=== PATIENT | female | born 2000 | race Caucasian/White ===

== ENCOUNTER 2021-05-05 21:09 | Emergency (ER) | payer BC ==
[~2021-05-05] VITALS: Ht 157.5 cm; Wt 50.8 kg
[~2021-05-05 21:09] MED LIST: IBUPROFEN600 MG PO; MAPAP325 MG PO; OXYCODON-ACETA1 EAC2 PO; ZOFRAN4 MG PO
[2021-05-05] MEDS ORDERED: NITROSTAT0.4 MG SL (21:30)
[2021-05-05] MEDS ORDERED: EPIPEN 2-P0.3 MG/0.3 IM (23:45)
== END 2021-05-05 23:56 | disposition home or self-care (01) ==
LOC: ED 21:09
DX: R06.02 Shortness of breath (principal)
CPT/HCPCS: 96374; 96375; 99284-25; J0171; J1200; J2930

== ENCOUNTER 2021-05-08 14:48 | Emergency (ER) | payer BC ==
[~2021-05-08] VITALS: Ht 157.5 cm; Wt 50.8 kg
[~2021-05-08 14:48] MED LIST changes: +EPIPEN 2-P0.3 MG/0.3 IM; +NITROSTAT0.4 MG SL
--- OUTSIDE RECORDS SUMMARY | 2021-05-08 14:56 | XMS ---
PreManage Notification: DEMOND VAUGHN Security Veterinary Practitioner Events No recent Security Events currently on file CRITERIA MET - [facility] - 2 Visits in 30 Days CARE PROVIDERS There are no care providers on record at this time. Javi has no Care Guidelines for this patient. [place] VIS[facility] COUNT (12 MO.) [facility] NOTE: Visits indicate total known visits. [facility] (12 MO.) [facility] COMPLAINT: - ALLERGIC REACTION 05/05/2021 21:10 [facility]EE[facility] [place] TYPE: Emergency COMPLAINT: - DIFFICULTY BREATHING INPATIENT VISIT TRACKING (12 MO.) No inpatient visits to display in this time frame [email or web address]
[2021-05-08] MEDS ORDERED: ATIVAN1 MG PO (16:41)
== END 2021-05-08 16:56 | disposition home or self-care (01) ==
LOC: ED 14:48
DX: J38.5 Laryngeal spasm (principal); Z88.8 Allergy status to other drugs, medicaments and biological substances; Z79.899 Other long term (current) drug therapy; Z20.822 Contact with and (suspected) exposure to COVID-19
CPT/HCPCS: 71045; 96374; 99285-25; C9803; J2060; U0003

== ENCOUNTER 2022-09-05 21:18 | Emergency (ER) | payer OTHER ==
[~2022-09-05] VITALS: Ht 157.5 cm; Wt 55.0 kg
[~2022-09-05 21:18] MED LIST changes: +ATIVAN1 MG PO; +ONDANSETRON ODT4 MG PO
[2022-09-06] MEDS ORDERED: KEPPRA500 MG PO (04:57)
[2022-09-06 06:23] VITALS: BP 114/83
== END 2022-09-06 06:24 | disposition home or self-care (01) ==
LOC: ED 21:18
DX: G40.901 Epilepsy, unspecified, not intractable, with status epilepticus (principal); Z88.5 Allergy status to narcotic agent; Z88.8 Allergy status to other drugs, medicaments and biological substances; Z79.899 Other long term (current) drug therapy
CPT/HCPCS: 36415; 71045; 80053; 81003; 84703; 85025; 96365; 96375; 99284-25; G0480; J1200; J1953; J2060; J2250; J2405; J7121; Q2009

== ENCOUNTER 2022-09-06 18:00 | Emergency (ER) | payer OTHER ==
[~2022-09-06] VITALS: Ht 157.5 cm; Wt 57.1 kg
[~2022-09-06 18:00] MED LIST changes: +KEPPRA500 MG PO
--- OUTSIDE RECORDS SUMMARY | 2022-09-06 18:03 | XMS ---
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 E.D. VISIT COUNT (12 MO.) 1 [facility] [address] [facility] TOTAL 5 NOTE: Visits indicate total known visits. ED/C VISIT TRACKING (12 MO.) 09/06/2022 18:00 KEENA Lockwood TYPE: Emergency COMPLAINT: - SEIZURE 09/05/2022 21:18 KEENA Lockwood TYPE: Emergency COMPLAINT: - SEIZURE 03/02/2022 19:41 [facility] TYPE: Emergency DIAGNOSES: 41612. SEIZURES, FAINTING 11/01/2021 13:05 [facility] DIAGNOSES: - Syncope and collapse - Syncope 10/31/2021 14:[address] [facility] [place] TYPE: Emergency COMPLAINT: - ABDOMINAL WALL/UMBILICAL HERNIA DIAGNOSES: - Allergy status to other drugs, medicaments and biological substances - Syncope and collapse INPATIENT VISIT TRACKING (12 MO.) 03/02/2022 19:41 [facility] TYPE: Neurology DIAGNOSES: 17234. SEIZURES, FAINTING 50500. Postural orthostatic tachycardia syndrome [POTS] 11/01/2021 13:05 [facility]: Internal Medicine DIAGNOSES: - Anxiety disorder, unspecified - Syncope and collapse 10/31/2021 16:48 KEENA Rodriguez [place] TYPE: Medical Surgical COMPLAINT: - ABDOMINAL WALL/UMBILICAL HERNIA [id number]
[2022-09-06 20:56] VITALS: BP 123/80
== END 2022-09-06 20:56 | disposition short-term general hospital (02) ==
LOC: ED 18:00
DX: R56.9 Unspecified convulsions (principal); Z88.5 Allergy status to narcotic agent; Z88.8 Allergy status to other drugs, medicaments and biological substances; Z79.899 Other long term (current) drug therapy
CPT/HCPCS: 36415; 36600; 51702; 51798; 70450; 80053; 82803; 83605; 85025; 99285-25; J1953; J2060; J7030

== ENCOUNTER 2022-10-29 06:23 | Emergency (ER) | payer OTHER ==
[~2022-10-29] VITALS: Ht 157.5 cm; Wt 56.7 kg
--- OUTSIDE RECORDS SUMMARY | ~2022-10-29 | XMS | Continuity of Care Document ---
Demographics + + + | Address | [facility] [address] | | | [place] [address] | + + + | Preferred Language | Unknown | + + + | Marital Status | Never | + + + | Mosque Affiliation | Unknown | + + + | Race | White | + + + | Ethnic Group | Not or | + + + Author + + + | Author | Oral | + + + | Organization | Oral | + + + | Address | [address] | | | [place] [address] | + + + | Phone | | + + + Care Team Providers + + + + | Care Librarian Special Library Name | Role | Phone | + + + + Unavailable | Unavailable | + + + + Unavailable | Unavailable | + + + + Unavailable | Unavailable | + + + + Allergies and Intolerances + + + + + + | date | description | facility | reaction | severity | + + + + + + | (no date) | Fosphenytoin | [facility] | (no reaction) | (no severity) | | | | [facility] | | | + + + + + + | (no date) | Midazolam | [facility] | (no reaction) | (no severity) | | | | [facility] | | | + + + + + + | (no date) | Itching | [facility] | (no reaction) | (no severity) | | | | [facility] | | | + + + + + + | (no date) | Midazolam | [facility] | (no reaction) | (no severity) | | | | [facility] | | | + + + + + + | (no date) | midazolam | [facility] | (no reaction) | (no severity) | | | | [facility] | | | + + + + + + | (no date) | Fosphenytoin | [facility] | (no reaction) | (no severity) | | | | [facility] | | | + + + + + + | (no date) | Fosphenytoin | [facility] | (no reaction) | (no severity) | | | | [facility] | | | + + + + + + | (no date) | Midazolam | [facility] | (no reaction) | (no severity) | | | | [facility] | | | + + + + + + Encounters No information. Functional Status No information. Immunizations No information. Medications + + + + | date | description | facility | + + + + | 2021-05-08 00:00 | LORAZEPAM | [facility] | + + + + | 2021-10-31 00:00 | ONDANSETRON | [facility] | + + + + | 2016-08-22 00:00 | ONDANSETRON HCL | [facility] | + + + + | 2016-08-22 00:00 | ONDANSETRON HCL | [facility] | + + + + | 2016-08-22 00:00 | OXYCODONE | [facility] | | | HCL/ACETAMINOPHEN | | + + + + | 2016-08-22 00:00 | OXYCODONE | [facility] | | | HCL/ACETAMINOPHEN | | + + + + | 2016-08-22 00:00 | IBUPROFEN | [facility] | + + + + | 2016-08-22 00:00 | IBUPROFEN | [facility] | + + + + | 2021-11-01 00:00 | NITROGLYCERIN | [facility] | + + + + | 2022-09-06 00:00 | NITROGLYCERIN | [facility] | + + + + | 2016-08-22 00:00 | ACETAMINOPHEN | [facility] | + + + + | 2016-08-22 00:00 | ACETAMINOPHEN | [facility] | + + + + | 2022-09-06 00:00 | LEVETIRACETAM | [facility] | + + + + | 2021-05-05 00:00 | EPINEPHRINE | [facility] | + + + + | 2021-05-05 00:00 | EPINEPHRINE | [facility] | + + + + Problems + + + + | date | description | facility | + + + + | 2021-10-31 00:00 | Syncope | [facility] | + + + + | 2021-10-31 00:00 | Syncope | [facility] | + + + + | 2022-09-05 21:18 | EPILEPSY, UNSP, NOT | [facility] | | | INTRACTABLE, WITH STATUS | | | | EPILE | | + + + + | 2022-09-05 21:18 | UNSPECIFIED CONVULSIONS | [facility] | + + + + | 2022-09-05 21:18 | OTHER PRISON (CURRENT) | [facility] | | | DRUG THERAPY | | + + + + | 2022-09-05 21:18 | ALLERGY STATUS TO NARCOTIC | [facility] | | | AGENT STATUS | | + + + + | 2022-09-05 21:18 | ALLERGY STATUS TO OTH | [facility] | | | DRUG/MEDS/BIOL SUBST STATUS | | | | | | + + + + | 2022-09-06 00:00 | Status epilepticus | [facility] | + + + + | 2022-09-06 18:00 | UNSPECIFIED CONVULSIONS | [facility] | + + + + | 2022-09-06 18:00 | OTHER PRISON (CURRENT) | [facility] | | | DRUG THERAPY | | + + + + | 2022-09-06 18:00 | ALLERGY STATUS TO NARCOTIC | [facility] | | | AGENT STATUS | | + + + + | 2022-09-06 18:00 | ALLERGY STATUS TO OTH | [facility] | | | DRUG/MEDS/BIOL SUBST STATUS | | | | | | + + + + Procedures No information. Results/Labs +--------+--------+ +---------+--------+---------+ | test | date | facility | value | unit | notes | +--------+--------+ +---------+--------+---------+ + + | Result panel 1 | + + + + + + + + + | | 2021-05-08 | [facility] | NEGATIVE | (missing) | (missing) | | (unavailable | 15:55 | [facility] | | | | + + + + + + + + + | Result panel 2 | + + + + + + + + + | | 2021-05-08 | [facility] | NEGATIVE | (missing) | (missing) | | (unavailable | 15:55 | [facility] | | | | + + + + + + + + + | Result panel 3 | + + + + + + + + + | | 2021-05-08 | [facility] | NEGATIVE | (missing) | (missing) | | (unavailable | 15:55 | [facility] | | | | + + + + + + + + + | Result panel 4 | + + + + + + + + + | | 2021-05-08 | [facility] | NEGATIVE | (missing) | (missing) | | (unavailable | 15:55 | [facility] | | | | + + + + + + + + + | Result panel 5 | + + + + + +-------+ + + | | 2021-10-31 | [facility] | 121 | (missing) | (missing) | | (unavailable | 15:05 | [facility] | | | | + + + +-------+ + + + + | Result panel 6 | + + + + + +-------+ + + | | 2021-10-31 | [facility] | 7.3 | (missing) | (missing) | | (unavailable | 17:05 | [facility] | | | | + + + +-------+ + + + + | Result panel 7 | + + + + + +--------+ + + | | 2021-10-31 | [facility] | 4.87 | (missing) | (missing) | | (unavailable | 17:05 | [facility] | | | | + + + +--------+ + + + + | Result panel 8 | + + + + + +--------+ + + | | 2021-10-31 | [facility] | 14.3 | (missing) | (missing) | | (unavailable | 17:05 | [facility] | | | | + + + +--------+ + + + + | Result panel 9 | + + + + + +--------+ + + | | 2021-10-31 | [facility] | 42.9 | (missing) | (missing) | | (unavailable | 17:05 | [facility] | | | | + + + +--------+ + + + + | Result panel 10 | + + + + + +--------+ + + | | 2021-10-31 | [facility] | 88.1 | (missing) | (missing) | | (unavailable | 17:05 | [facility] | | | | + + + +--------+ + + + + | Result panel 11 | + + + + + +--------+ + + | | 2021-10-31 | [facility] | 29.3 | (missing) | (missing) | | (unavailable | 17:05 | [facility] | | | | + + + +--------+ + + + + | Result panel 12 | + + + + + +--------+ + + | | 2021-10-31 | [facility] | 33.3 | (missing) | (missing) | | (unavailable | 17:05 | [facility] | | | | + + + +--------+ + + + + | Result panel 13 | + + + + + +--------+ + + | | 2021-10-31 | [facility] | 13.6 | (missing) | (missing) | | (unavailable | 17:05 | [facility] | | | | + + + +--------+ + + + + | Result panel 14 | + + + + + +-------+ + + | | 2021-10-31 | [facility] | 320 | (missing) | (missing) | | (unavailable | 17:05 | [facility] | | | | + + + +-------+ + + + + | Result panel 15 | + + + + + +--------+ + + | | 2021-10-31 | [facility] | 67.9 | (missing) | (missing) | | (unavailable | 17:05 | [facility] | | | | + + + +--------+ + + + + | Result panel 16 | + + + + + +--------+ + + | | 2021-10-31 | [facility] | 22.0 | (missing) | (missing) | | (unavailable | 17:05 | [facility] | | | | + + + +--------+ + + + + | Result panel 17 | + + + + + +-------+ + + | | 2021-10-31 | [facility] | 8.2 | (missing) | (missing) | | (unavailable | 17:05 | [facility] | | | | + + + +-------+ + + + + | Result panel 18 | + + + + + +-------+ + + | | 2021-10-31 | [facility] | 1.2 | (missing) | (missing) | | (unavailable | 17:05 | [facility] | | | | + + + +-------+ + + + + | Result panel 19 | + + + + + +-------+ + + | | 2021-10-31 | [facility] | 0.7 | (missing) | (missing) | | (unavailable | 17:05 | [facility] | | | | + + + +-------+ + + + + | Result panel 20 | + + + + + + + + + | | 2021-10-31 | [facility] | YELLOW | (missing) | (missing) | | (unavailable | 17:05 | [facility] | | | | + + + + + + + + + | Result panel 21 | + + + + + +---------+ + + | | 2021-10-31 | [facility] | CLEAR | (missing) | (missing) | | (unavailable | 17:05 | [facility] | | | | + + + +---------+ + + + + | Result panel 22 | + + + + + + + + + | | 2021-10-31 | [facility] | NEGATIVE | (missing) | (missing) | | (unavailable | 17:05 | [facility] | | | | + + + + + + + + + | Result panel 23 | + + + + + + + + + | | 2021-10-31 | [facility] | NEGATIVE | (missing) | (missing) | | (unavailable | 17:05 | [facility] | | | | + + + + + + + + + | Result panel 24 | + + + + + + + + + | | 2021-10-31 | [facility] | NEGATIVE | (missing) | (missing) | | (unavailable | 17:05 | [facility] | | | | + + + + + + + + + | Result panel 25 | + + + + + +---------+ + + | | 2021-10-31 | [facility] | 1.020 | (missing) | (missing) | | (unavailable | 17:05 | [facility] | | | | + + + +---------+ + + + + | Result panel 26 | + + + + + + + + + | | 2021-10-31 | [facility] | NEGATIVE | (missing) | (missing) | | (unavailable | 17:05 | [facility] | | | | + + + + + + + + + | Result panel 27 | + + + + + +-------+ + + | | 2021-10-31 | [facility] | 7.0 | (missing) | (missing) | | (unavailable | 17:05 | [facility] | | | | + + + +-------+ + + + + | Result panel 28 | + + + + + + + + + | | 2021-10-31 | [facility] | NEGATIVE | (missing) | (missing) | | (unavailable | 17:05 | [facility] | | | | + + + + + + + + + | Result panel 29 | + + + + + + + + + | | 2021-10-31 | [facility] | NORMAL | (missing) | (missing) | | (unavailable | 17:05 | [facility] | | | | + + + + + + + + + | Result panel 30 | + + + + + + + + + | | 2021-10-31 | [facility] | NEGATIVE | (missing) | (missing) | | (unavailable | 17:05 | [facility] | | | | + + + + + + + + + | Result panel 31 | + + + + + + + + + | | 2021-10-31 | [facility] | NEGATIVE | (missing) | (missing) | | (unavailable | 17:05 | [facility] | | | | + + + + + + + + + | Result panel 32 | + + + + + + + + + | | 2021-10-31 | [facility] | CLEAN CATCH | (missing) | (missing) | | (unavailable | 17:05 | [facility] | | | | + + + + + + + + + | Result panel 33 | + + + + + +------+---------+ + | | 2021-10-31 | [facility] | 98 | mg/dL | (missing) | | (unavailable | 17:05 | [facility] | | | | + + + +------+---------+ + + + | Result panel 34 | + + + + + +------+---------+ + | | 2021-10-31 | [facility] | 13 | mg/dL | (missing) | | (unavailable | 17:05 | [facility] | | | | + + + +------+---------+ + + + | Result panel 35 | + + + + + +--------+---------+ + | | 2021-10-31 | [facility] | 1.01 | mg/dL | (missing) | | (unavailable | 17:05 | [facility] | | | | + + + +--------+---------+ + + + | Result panel 36 | + + + + + +------+ + + | | 2021-10-31 | [facility] | 82 | (missing) | (missing) | | (unavailable | 17:05 | [facility] | | | | + + + +------+ + + + + | Result panel 37 | + + + + + +---------+ + + | | 2021-10-31 | [facility] | 12.87 | (missing) | (missing) | | (unavailable | 17:05 | [facility] | | | | + + + +---------+ + + + + | Result panel 38 | + + + + + +-------+ + + | | 2021-10-31 | [facility] | 143 | (missing) | (missing) | | (unavailable | 17:05 | [facility] | | | | + + + +-------+ + + + + | Result panel 39 | + + + + + +-------+ + + | | 2021-10-31 | [facility] | 3.4 | (missing) | (missing) | | (unavailable | 17:05 | [facility] | | | | + + + +-------+ + + + + | Result panel 40 | + + + + + +-------+ + + | | 2021-10-31 | [facility] | 106 | (missing) | (missing) | | (unavailable | 17:05 | [facility] | | | | + + + +-------+ + + + + | Result panel 41 | + + + + + +------+ + + | | 2021-10-31 | [facility] | 31 | (missing) | (missing) | | (unavailable | 17:05 | [facility] | | | | + + + +------+ + + + + | Result panel 42 | + + + + + +-------+ + + | | 2021-10-31 | [facility] | 9.4 | (missing) | (missing) | | (unavailable | 17:05 | [facility] | | | | + + + +-------+ + + + + | Result panel 43 | + + + + + +-------+---------+ + | | 2021-10-31 | [facility] | 8.7 | mg/dL | (missing) | | (unavailable | 17:05 | [facility] | | | | + + + +-------+---------+ + + + | Result panel 44 | + + + + + +-------+ + + | | 2021-10-31 | [facility] | 6.2 | (missing) | (missing) | | (unavailable | 17:05 | [facility] | | | | + + + +-------+ + + + + | Result panel 45 | + + + + + +-------+ + + | | 2021-10-31 | [facility] | 3.5 | (missing) | (missing) | | (unavailable | 17:05 | [facility] | | | | + + + +-------+ + + + + | Result panel 46 | + + + + + +-------+ + + | | 2021-10-31 | [facility] | 2.7 | (missing) | (missing) | | (unavailable | 17:05 | [facility] | | | | + + + +-------+ + + + + | Result panel 47 | + + + + + +--------+ + + | | 2021-10-31 | [facility] | 1.30 | (missing) | (missing) | | (unavailable | 17:05 | [facility] | | | | + + + +--------+ + + + + | Result panel 48 | + + + + + +-------+ + + | | 2021-10-31 | [facility] | 0.5 | (missing) | (missing) | | (unavailable | 17:05 | [facility] | | | | + + + +-------+ + + + + | Result panel 49 | + + + + + +------+ + + | | 2021-10-31 | [facility] | 13 | (missing) | (missing) | | (unavailable | 17:05 | [facility] | | | | + + + +------+ + + + + | Result panel 50 | + + + + + +------+ + + | | 2021-10-31 | [facility] | 20 | (missing) | (missing) | | (unavailable | 17:05 | [facility] | | | | + + + +------+ + + + + | Result panel 51 | + + + + + +------+ + + | | 2021-10-31 | [facility] | 65 | (missing) | (missing) | | (unavailable | 17:05 | [facility] | | | | + + + +------+ + + + + | Result panel 52 | + + + + + +--------+ + + | | 2021-10-31 | [facility] | <4.0 | (missing) | (missing) | | (unavailable | 17:05 | [facility] | | | | + + + +--------+ + + + + | Result panel 53 | + + + + + + + + + | | 2021-10-31 | [facility] | NEGATIVE | (missing) | (missing) | | (unavailable | 17:05 | [facility] | | | | + + + + + + + + + | Result panel 54 | + + + + + + + + + | | 2021-10-31 | [facility] | < 0.27 | (missing) | (missing) | | (unavailable | 17:14 | [facility] | | | | + + + + + + + + + | Result panel 55 | + + + + + + + + + | | 2022-09-05 | [facility] | YELLOW | (missing) | (missing) | | (unavailable | 00:20:07 | [facility] | | | | + + + + + + + + + | Result panel 56 | + + + + + + + + + | | 2022-09-05 | [facility] | CLOUDY | (missing) | (missing) | | (unavailable | 00:20:07 | [facility] | | | | + + + + + + + + + | Result panel 57 | + + + + + + + + + | | 2022-09-05 | [facility] | NEGATIVE | (missing) | (missing) | | (unavailable | 00:20:07 | [facility] | | | | + + + + + + + + + | Result panel 58 | + + + + + + + + + | | 2022-09-05 | [facility] | NEGATIVE | (missing) | (missing) | | (unavailable | 00:20:07 | [facility] | | | | + + + + + + + + + | Result panel 59 | + + + + + + + + + | | 2022-09-05 | [facility] | NEGATIVE | (missing) | (missing) | | (unavailable | 00:20:07 | [facility] | | | | + + + + + + + + + | Result panel 60 | + + + + + +---------+ + + | | 2022-09-05 | [facility] | 1.015 | (missing) | (missing) | | (unavailable | 00:20:07 | [facility] | | | | + + + +---------+ + + + + | Result panel 61 | + + + + + + + + + | | 2022-09-05 | [facility] | NEGATIVE | (missing) | (missing) | | (unavailable | 00:20:07 | [facility] | | | | + + + + + + + + + | Result panel 62 | + + + + + +-------+ + + | | 2022-09-05 | [facility] | 8.0 | (missing) | (missing) | | (unavailable | 00:20:07 | [facility] | | | | + + + +-------+ + + + + | Result panel 63 | + + + + + + + + + | | 2022-09-05 | [facility] | NEGATIVE | (missing) | (missing) | | (unavailable | 00:20:07 | [facility] | | | | + + + + + + + + + | Result panel 64 | + + + + + + + + + | | 2022-09-05 | [facility] | NORMAL | (missing) | (missing) | | (unavailable | 00:20:07 | [facility] | | | | + + + + + + + + + | Result panel 65 | + + + + + + + + + | | 2022-09-05 | [facility] | NEGATIVE | (missing) | (missing) | | (unavailable | 00:20:07 | [facility] | | | | + + + + + + + + + | Result panel 66 | + + + + + + + + + | | 2022-09-05 | [facility] | NEGATIVE | (missing) | (missing) | | (unavailable | 00:: | [facility] | | | | + + + + + + + + + | Result panel 67 | + + + + + + + + + | | 2022-09-05 | [facility] | NEGATIVE | (missing) | (missing) | | (unavailable | 00::07 | [facility] | | | | + + + + + + + + + | Result panel 68 | + + + + + + + + + | | 2022-09-05 | [facility] | NEGATIVE | (missing) | (missing) | | (unavailable | 00:20:07 | [facility] | | | | + + + + + + + + + | Result panel 69 | + + + + + + + + + | | 2022-09-05 | [facility] | NEGATIVE | (missing) | (missing) | | (unavailable | 00:20:07 | [facility] | | | | + + + + + + + + + | Result panel 70 | + + + + + + + + + | | 2022-09-05 | [facility] | NEGATIVE | (missing) | (missing) | | (unavailable | 00:20:07 | [facility] | | | | + + + + + + + + + | Result panel 71 | + + + + + + + + + | | 2022-09-05 | [facility] | NEGATIVE | (missing) | (missing) | | (unavailable | 00:20:07 | [facility] | | | | + + + + + + + + + | Result panel 72 | + + + + + + + + + | | 2022-09-05 | [facility] | NEGATIVE | (missing) | (missing) | | (unavailable | 00:20:07 | [facility] | | | | + + + + + + + + + | Result panel 73 | + + + + + + + + + | | 2022-09-05 | [facility] | NEGATIVE | (missing) | (missing) | | (unavailable | 00:20:07 | [facility] | | | | + + + + + + + + + | Result panel 74 | + + + + + + + + + | | 2022-09-05 | [facility] | NEGATIVE | (missing) | (missing) | | (unavailable | 00:20:07 | [facility] | | | | + + + + + + + + + | Result panel 75 | + + + + + + + + + | | 2022-09-05 | [facility] | NEGATIVE | (missing) | (missing) | | (unavailable | 00:20:07 | [facility] | | | | + + + + + + + + + | Result panel 76 | + + + + + + + + + | | 2022-09-05 | [facility] | NEGATIVE | (missing) | (missing) | | (unavailable | 00:20:07 | [facility] | | | | + + + + + + + + + | Result panel 77 | + + + + + + + + + | | 2022-09-05 | [facility] | NEGATIVE | (missing) | (missing) | | (unavailable | 00:20:07 | [facility] | | | | + + + + + + + + + | Result panel 78 | + + + + + + + + + | | 2022-09-05 | [facility] | NEGATIVE | (missing) | (missing) | | (unavailable | 00:20:07 | [facility] | | | | + + + + + + + + + | Result panel 79 | + + + + + + + + + | | 2022-09-05 | [facility] | NEGATIVE | (missing) | (missing) | | (unavailable | 00:20:07 | [facility] | | | | + + + + + + + + + | Result panel 80 | + + + + + + + + + | | 2022-09-05 | [facility] | YELLOW | (missing) | (missing) | | (unavailable | 00:20:07 | [facility] | | | | + + + + + + + + + | Result panel 81 | + + + + + + + + + | | 2022-09-05 | [facility] | CLOUDY | (missing) | (missing) | | (unavailable | 00:20:07 | [facility] | | | | + + + + + + + + + | Result panel 82 | + + + + + + + + + | | 2022-09-05 | [facility] | NEGATIVE | (missing) | (missing) | | (unavailable | 00:20:07 | [facility] | | | | + + + + + + + + + | Result panel 83 | + + + + + + + + + | | 2022-09-05 | [facility] | NEGATIVE | (missing) | (missing) | | (unavailable | 00:20:07 | [facility] | | | | + + + + + + + + + | Result panel 84 | + + + + + + + + + | | 2022-09-05 | [facility] | NEGATIVE | (missing) | (missing) | | (unavailable | 00:20:07 | [facility] | | | | + + + + + + + + + | Result panel 85 | + + + + + +---------+ + + | | 2022-09-05 | [facility] | 1.015 | (missing) | (missing) | | (unavailable | 00:20:07 | [facility] | | | | + + + +---------+ + + + + | Result panel 86 | + + + + + + + + + | | 2022-09-05 | [facility] | NEGATIVE | (missing) | (missing) | | (unavailable | 00:20:07 | [facility] | | | | + + + + + + + + + | Result panel 87 | + + + + + +-------+ + + | | 2022-09-05 | [facility] | 8.0 | (missing) | (missing) | | (unavailable | 00:20:07 | [facility] | | | | + + + +-------+ + + + + | Result panel 88 | + + + + + + + + + | | 2022-09-05 | [facility] | NEGATIVE | (missing) | (missing) | | (unavailable | 00:20:07 | [facility] | | | | + + + + + + + + + | Result panel 89 | + + + + + + + + + | | 2022-09-05 | [facility] | NORMAL | (missing) | (missing) | | (unavailable | 00:20:07 | [facility] | | | | + + + + + + + + + | Result panel 90 | + + + + + + + + + | | 2022-09-05 | [facility] | NEGATIVE | (missing) | (missing) | | (unavailable | 00:20:07 | [facility] | | | | + + + + + + + + + | Result panel 91 | + + + + + + + + + | | 2022-09-05 | [facility] | NEGATIVE | (missing) | (missing) | | (unavailable | 00:20:07 | [facility] | | | | + + + + + + + + + | Result panel 92 | + + + + + + + + + | | 2022-09-05 | [facility] | NEGATIVE | (missing) | (missing) | | (unavailable | 00:20:07 | [facility] | | | | + + + + + + + + + | Result panel 93 | + + + + + + + + + | | 2022-09-05 | [facility] | NEGATIVE | (missing) | (missing) | | (unavailable | 00:20:07 | [facility] | | | | + + + + + + + + + | Result panel 94 | + + + + + + + + + | | 2022-09-05 | [facility] | NEGATIVE | (missing) | (missing) | | (unavailable | 00:20:07 | [facility] | | | | + + + + + + + + + | Result panel 95 | + + + + + + + + + | | 2022-09-05 | [facility] | NEGATIVE | (missing) | (missing) | | (unavailable | 00:20:07 | [facility] | | | | + + + + + + + + + | Result panel 96 | + + + + + + + + + | | 2022-09-05 | [facility] | NEGATIVE | (missing) | (missing) | | (unavailable | 00:20:07 | [facility] | | | | + + + + + + + + + | Result panel 97 | + + + + + + + + + | | 2022-09-05 | [facility] | NEGATIVE | (missing) | (missing) | | (unavailable | 00:20:07 | [facility] | | | | + + + + + + + + + | Result panel 98 | + + + + + + + + + | | 2022-09-05 | [facility] | NEGATIVE | (missing) | (missing) | | (unavailable | 00:20:07 | [facility] | | | | + + + + + + + + + | Result panel 99 | + + + + + + + + + | | 2022-09-05 | [facility] | NEGATIVE | (missing) | (missing) | | (unavailable | 00:20:07 | [facility] | | | | + + + + + + + + + | Result panel 100 | + + + + + + + + + | | 2022-09-05 | [facility] | NEGATIVE | (missing) | (missing) | | (unavailable | 00:20:07 | [facility] | | | | + + + + + + + + + | Result panel 101 | + + + + + + + + + | | 2022-09-05 | [facility] | NEGATIVE | (missing) | (missing) | | (unavailable | 00:20:07 | [facility] | | | | + + + + + + + + + | Result panel 102 | + + + + + + + + + | | 2022-09-05 | [facility] | NEGATIVE | (missing) | (missing) | | (unavailable | 00:20:07 | [facility] | | | | + + + + + + + + + | Result panel 103 | + + + + + + + + + | | 2022-09-05 | [facility] | NEGATIVE | (missing) | (missing) | | (unavailable | 00:20:07 | [facility] | | | | + + + + + + + + + | Result panel 104 | + + + + + + + + + | | 2022-09-05 | [facility] | NEGATIVE | (missing) | (missing) | | (unavailable | 00:20:07 | [facility] | | | | + + + + + + + + + | Result panel 105 | + + + + + +-------+ + + | | 2022-09-05 | [facility] | 6.9 | (missing) | (missing) | | (unavailable | 22:14:07 | [facility] | | | | + + + +-------+ + + + + | Result panel 106 | + + + + + +--------+ + + | | 2022-09-05 | [facility] | 75.1 | (missing) | (missing) | | (unavailable | :: | [facility] | | | | + + + +--------+ + + + + | Result panel 107 | + + + + + +--------+ + + | | 2022-09-05 | [facility] | 16.0 | (missing) | (missing) | | (unavailable | | [facility] | | | | + + + +--------+ + + + + | Result panel 108 | + + + + + +-------+ + + | | 2022-09-05 | [facility] | 8.3 | (missing) | (missing) | | (unavailable | :: | [facility] | | | | + + + +-------+ + + + + | Result panel 109 | + + + + + +-------+ + + | | 2022-09-05 | [facility] | 0.3 | (missing) | (missing) | | (unavailable | ::07 | [facility] | | | | + + + +-------+ + + + + | Result panel 110 | + + + + + +-------+ + + | | 2022-09-05 | [facility] | 0.3 | (missing) | (missing) | | (unavailable | 22:14:07 | [facility] | | | | + + + +-------+ + + + + | Result panel 111 | + + + + + +--------+ + + | | 2022-09-05 | [facility] | 4.70 | (missing) | (missing) | | (unavailable | 22:14:07 | [facility] | | | | + + + +--------+ + + + + | Result panel 112 | + + + + + +-------+---------+ + | | 2022-09-05 | [facility] | 134 | mg/dL | (missing) | | (unavailable | 22:14:07 | [facility] | | | | + + + +-------+---------+ + + + | Result panel 113 | + + + + + +------+---------+ + | | 2022-09-05 | [facility] | 13 | mg/dL | (missing) | | (unavailable | 22:14:07 | [facility] | | | | + + + +------+---------+ + + + | Result panel 114 | + + + + + +--------+---------+ + | | 2022-09-05 | [facility] | 0.80 | mg/dL | (missing) | | (unavailable | 22:14:07 | [facility] | | | | + + + +--------+---------+ + + + | Result panel 115 | + + + + + +--------+ + + | | 2022-09-05 | [facility] | 14.0 | (missing) | (missing) | | (unavailable | 22:14:07 | [facility] | | | | + + + +--------+ + + + + | Result panel 116 | + + + + + +-------+ + + | | 2022-09-05 | [facility] | 108 | (missing) | (missing) | | (unavailable | 22:14:07 | [facility] | | | | + + + +-------+ + + + + | Result panel 117 | + + + + + +---------+ + + | | 2022-09-05 | [facility] | 16.25 | (missing) | (missing) | | (unavailable | 22:14:07 | [facility] | | | | + + + +---------+ + + + + | Result panel 118 | + + + + + +-------+ + + | | 2022-09-05 | [facility] | 137 | (missing) | (missing) | | (unavailable | 22::07 | [facility] | | | | + + + +-------+ + + + + | Result panel 119 | + + + + + +-------+ + + | | 2022-09-05 | [facility] | 3.6 | (missing) | (missing) | | (unavailable | 22::07 | [facility] | | | | + + + +-------+ + + + + | Result panel 120 | + + + + + +-------+ + + | | 2022-09-05 | [facility] | 103 | (missing) | (missing) | | (unavailable | ::07 | [facility] | | | | + + + +-------+ + + + + | Result panel 121 | + + + + + +------+ + + | | 2022-09-05 | [facility] | 27 | (missing) | (missing) | | (unavailable | ::07 | [facility] | | | | + + + +------+ + + + + | Result panel 122 | + + + + + +--------+ + + | | 2022-09-05 | [facility] | 10.6 | (missing) | (missing) | | (unavailable | 22:14:07 | [facility] | | | | + + + +--------+ + + + + | Result panel 123 | + + + + + +-------+---------+ + | | 2022-09-05 | [facility] | 8.4 | mg/dL | (missing) | | (unavailable | 22:14:07 | [facility] | | | | + + + +-------+---------+ + + + | Result panel 124 | + + + + + +-------+ + + | | 2022-09-05 | [facility] | 6.2 | (missing) | (missing) | | (unavailable | 22:14:07 | [facility] | | | | + + + +-------+ + + + + | Result panel 125 | + + + + + +-------+ + + | | 2022-09-05 | [facility] | 3.7 | (missing) | (missing) | | (unavailable | 22:14:07 | [facility] | | | | + + + +-------+ + + + + | Result panel 126 | + + + + + +--------+ + + | | 2022-09-05 | [facility] | 42.0 | (missing) | (missing) | | (unavailable | 22:14:07 | [facility] | | | | + + + +--------+ + + + + | Result panel 127 | + + + + + +-------+ + + | | 2022-09-05 | [facility] | 2.5 | (missing) | (missing) | | (unavailable | 22:14:07 | [facility] | | | | + + + +-------+ + + + + | Result panel 128 | + + + + + +--------+ + + | | 2022-09-05 | [facility] | 1.48 | (missing) | (missing) | | (unavailable | ::07 | [facility] | | | | + + + +--------+ + + + + | Result panel 129 | + + + + + +-------+ + + | | 2022-09-05 | [facility] | 0.3 | (missing) | (missing) | | (unavailable | 22:14:07 | [facility] | | | | + + + +-------+ + + + + | Result panel 130 | + + + + + +------+ + + | | 2022-09-05 | [facility] | 15 | (missing) | (missing) | | (unavailable | :: | [facility] | | | | + + + +------+ + + + + | Result panel 131 | + + + + + +------+ + + | | 2022-09-05 | [facility] | 21 | (missing) | (missing) | | (unavailable | :14:07 | [facility] | | | | + + + +------+ + + + + | Result panel 132 | + + + + + +------+ + + | | 2022-09-05 | [facility] | 52 | (missing) | (missing) | | (unavailable | : | [facility] | | | | + + + +------+ + + + + | Result panel 133 | + + + + + +------+ + + | | 2022-09-05 | [facility] | <3 | (missing) | (missing) | | (unavailable | ::07 | [facility] | | | | + + + +------+ + + + + | Result panel 134 | + + + + + +--------+ + + | | 2022-09-05 | [facility] | 89.3 | (missing) | (missing) | | (unavailable | 22:14:07 | [facility] | | | | + + + +--------+ + + + + | Result panel 135 | + + + + + +--------+ + + | | 2022-09-05 | [facility] | 29.7 | (missing) | (missing) | | (unavailable | 22:14:07 | [facility] | | | | + + + +--------+ + + + + | Result panel 136 | + + + + + +--------+ + + | | 2022-09-05 | [facility] | 33.3 | (missing) | (missing) | | (unavailable | 22:14:07 | [facility] | | | | + + + +--------+ + + + + | Result panel 137 | + + + + + +------+ + + | | 2022-09-05 | [facility] | <3 | (missing) | (missing) | | (unavailable | 22:14:07 | [facility] | | | | + + + +------+ + + + + | Result panel 138 | + + + + + +--------+ + + | | 2022-09-05 | [facility] | 12.8 | (missing) | (missing) | | (unavailable | 22:14:07 | [facility] | | | | + + + +--------+ + + + + | Result panel 139 | + + + + + +-------+ + + | | 2022-09-05 | [facility] | 317 | (missing) | (missing) | | (unavailable | 22:14:07 | [facility] | | | | + + + +-------+ + + + + | Result panel 140 | + + + + + + + + + | | 2022-09-06 | [facility] | NEGATIVE | (missing) | (missing) | | (unavailable | 00:20:07 | [facility] | | | | + + + + + + + + + | Result panel 141 | + + + + + + + + + | | 2022-09-06 | [facility] | NEGATIVE | (missing) | (missing) | | (unavailable | 00:20:07 | [facility] | | | | + + + + + + + + + | Result panel 142 | + + + + + +-------+ + + | | 2022-09-06 | [facility] | 0.4 | (missing) | (missing) | | (unavailable | 18:05:07 | [facility] | | | | + + + +-------+ + + + + | Result panel 143 | + + + + + +-------+---------+ + | | 2022-09-06 | [facility] | 100 | mg/dL | (missing) | | (unavailable | 18:05:07 | [facility] | | | | + + + +-------+---------+ + + + | Result panel 144 | + + + + + +------+---------+ + | | 2022-09-06 | [facility] | 14 | mg/dL | (missing) | | (unavailable | 18:05:07 | [facility] | | | | + + + +------+---------+ + + + | Result panel 145 | + + + + + +--------+---------+ + | | 2022-09-06 | [facility] | 0.92 | mg/dL | (missing) | | (unavailable | 18:05:07 | [facility] | | | | + + + +--------+---------+ + + + | Result panel 146 | + + + + + +------+ + + | | 2022-09-06 | [facility] | 91 | (missing) | (missing) | | (unavailable | 18:05:07 | [facility] | | | | + + + +------+ + + + + | Result panel 147 | + + + + + +---------+ + + | | 2022-09-06 | [facility] | 15.21 | (missing) | (missing) | | (unavailable | 18:05:07 | [facility] | | | | + + + +---------+ + + + + | Result panel 148 | + + + + + +-------+ + + | | 2022-09-06 | [facility] | 138 | (missing) | (missing) | | (unavailable | 18:05:07 | [facility] | | | | + + + +-------+ + + + + | Result panel 149 | + + + + + +-------+ + + | | 2022-09-06 | [facility] | 3.9 | (missing) | (missing) | | (unavailable | :: | [facility] | | | | + + + +-------+ + + + + | Result panel 150 | + + + + + +-------+ + + | | 2022-09-06 | [facility] | 104 | (missing) | (missing) | | (unavailable | 18::07 | [facility] | | | | + + + +-------+ + + + + | Result panel 151 | + + + + + +------+ + + | | 2022-09-06 | [facility] | 26 | (missing) | (missing) | | (unavailable | 18::07 | [facility] | | | | + + + +------+ + + + + | Result panel 152 | + + + + + +--------+ + + | | 2022-09-06 | [facility] | 11.9 | (missing) | (missing) | | (unavailable | :07 | [facility] | | | | + + + +--------+ + + + + | Result panel 153 | + + + + + +-------+---------+ + | | 2022-09-06 | [facility] | 8.8 | mg/dL | (missing) | | (unavailable | ::07 | [facility] | | | | + + + +-------+---------+ + + + | Result panel 154 | + + + + + +-------+ + + | | 2022-09-06 | [facility] | 6.6 | (missing) | (missing) | | (unavailable | 18::07 | [facility] | | | | + + + +-------+ + + + + | Result panel 155 | + + + + + +-------+ + + | | 2022-09-06 | [facility] | 3.9 | (missing) | (missing) | | (unavailable | 18:05:07 | [facility] | | | | + + + +-------+ + + + + | Result panel 156 | + + + + + +-------+ + + | | 2022-09-06 | [facility] | 2.7 | (missing) | (missing) | | (unavailable | 18:05:07 | [facility] | | | | + + + +-------+ + + + + | Result panel 157 | + + + + + +--------+ + + | | 2022-09-06 | [facility] | 1.44 | (missing) | (missing) | | (unavailable | 18:05:07 | [facility] | | | | + + + +--------+ + + + + | Result panel 158 | + + + + + +-------+ + + | | 2022-09-06 | [facility] | 0.4 | (missing) | (missing) | | (unavailable | 18:05:07 | [facility] | | | | + + + +-------+ + + + + | Result panel 159 | + + + + + +------+ + + | | 2022-09-06 | [facility] | 24 | (missing) | (missing) | | (unavailable | 18:05:07 | [facility] | | | | + + + +------+ + + + + | Result panel 160 | + + + + + +------+ + + | | 2022-09-06 | [facility] | 22 | (missing) | (missing) | | (unavailable | 18:05:07 | [facility] | | | | + + + +------+ + + + + | Result panel 161 | + + + + + +------+ + + | | 2022-09-06 | [facility] | 56 | (missing) | (missing) | | (unavailable | 18::07 | [facility] | | | | + + + +------+ + + + + | Result panel 162 | + + + + + +-------+ + + | | 2022-09-06 | [facility] | 0.7 | (missing) | (missing) | | (unavailable | 18:05:07 | [facility] | | | | + + + +-------+ + + + + | Result panel 163 | + + + + + +-------+ + + | | 2022-09-06 | [facility] | 7.4 | (missing) | (missing) | | (unavailable | 18:05:07 | [facility] | | | | + + + +-------+ + + + + | Result panel 164 | + + + + + +--------+ + + | | 2022-09-06 | [facility] | 5.17 | (missing) | (missing) | | (unavailable | 18:05:07 | [facility] | | | | + + + +--------+ + + + + | Result panel 165 | + + + + + +--------+ + + | | 2022-09-06 | [facility] | 15.4 | (missing) | (missing) | | (unavailable | 18:05:07 | [facility] | | | | + + + +--------+ + + + + | Result panel 166 | + + + + + +--------+ + + | | 2022-09-06 | [facility] | 46.3 | (missing) | (missing) | | (unavailable | 18:05:07 | [facility] | | | | + + + +--------+ + + + + | Result panel 167 | + + + + + +--------+ + + | | 2022-09-06 | [facility] | 89.7 | (missing) | (missing) | | (unavailable | 18:05:07 | [facility] | | | | + + + +--------+ + + + + | Result panel 168 | + + + + + +--------+ + + | | 2022-09-06 | [facility] | 29.9 | (missing) | (missing) | | (unavailable | 18:05:07 | [facility] | | | | + + + +--------+ + + + + | Result panel 169 | + + + + + +--------+ + + | | 2022-09-06 | [facility] | 33.3 | (missing) | (missing) | | (unavailable | 18:05:07 | [facility] | | | | + + + +--------+ + + + + | Result panel 170 | + + + + + +--------+ + + | | 2022-09-06 | [facility] | 13.2 | (missing) | (missing) | | (unavailable | 18:05:07 | [facility] | | | | + + + +--------+ + + + + | Result panel 171 | + + + + + +-------+ + + | | 2022-09-06 | [facility] | 311 | (missing) | (missing) | | (unavailable | 18::07 | [facility] | | | | + + + +-------+ + + + + | Result panel 172 | + + + + + +--------+ + + | | 2022-09-06 | [facility] | 75.0 | (missing) | (missing) | | (unavailable | 18::07 | [facility] | | | | + + + +--------+ + + + + | Result panel 173 | + + + + + +--------+ + + | | 2022-09-06 | [facility] | 16.5 | (missing) | (missing) | | (unavailable | 18:05:07 | [facility] | | | | + + + +--------+ + + + + | Result panel 174 | + + + + + +-------+ + + | | 2022-09-06 | [facility] | 7.4 | (missing) | (missing) | | (unavailable | 18:05:07 | [facility] | | | | + + + +-------+ + + + + | Result panel 175 | + + + + + +-------+ + + | | 2022-09-06 | [facility] | 0.7 | (missing) | (missing) | | (unavailable | 18:05:07 | [facility] | | | | + + + +-------+ + + + + | Result panel 176 | + + + + + +--------+ + + | | 2022-09-06 | [facility] | 7.37 | (missing) | (missing) | | (unavailable | 18:59:07 | [facility] | | | | + + + +--------+ + + + + | Result panel 177 | + + + + + +--------+ + + | | 2022-09-06 | [facility] | 39.0 | (missing) | (missing) | | (unavailable | 18:59:07 | [facility] | | | | + + + +--------+ + + + + | Result panel 178 | + + + + + +-------+ + + | | 2022-09-06 | [facility] | 117 | (missing) | (missing) | | (unavailable | 18:59:07 | [facility] | | | | + + + +-------+ + + + + | Result panel 179 | + + + + + +--------+ + + | | 2022-09-06 | [facility] | 22.4 | (missing) | (missing) | | (unavailable | 18:59:07 | [facility] | | | | + + + +--------+ + + + + | Result panel 180 | + + + + + +--------+ + + | | 2022-09-06 | [facility] | -2.6 | (missing) | (missing) | | (unavailable | 18:59:07 | [facility] | | | | + + + +--------+ + + + + | Result panel 181 | + + + + + +--------+ + + | | 2022-09-06 | [facility] | 99.3 | (missing) | (missing) | | (unavailable | 18:59:07 | [facility] | | | | + + + +--------+ + + + + | Result panel 182 | + + + + + + + + + | | 2022-09-06 | [facility] | ROOM AIR | (missing) | (missing) | | (unavailable | 18:59:07 | [facility] | | | | + + + + + + + + + | Result panel 183 | + + + + + +--------+ + + | | 2022-09-06 | [facility] | 23.6 | (missing) | (missing) | | (unavailable | 18:59:07 | [facility] | | | | + + + +--------+ + + Social History No information. Vital Signs + + + +---------+ | date | measurement | value | units | + + + +---------+ | 2021-05-05 00:00 | BMI | 20.5 | kg/m2 | + + + +---------+ | 2021-05-05 00:00 | BMI | 50 | th | + + + +---------+ | 2021-05-05 00:00 | BP_diastolic | 62 | mmHg | + + + +---------+ | 2021-05-05 00:00 | BP_systolic | 116 | mmHg | + + + +---------+ | 2021-05-05 00:00 | heart_rate | 75 | /min | + + + +---------+ | 2021-05-05 00:00 | height_metric | 157.48 | cm | + + + +---------+ | 2021-05-05 00:00 | height_standard | 62 | in | + + + +---------+ | 2021-05-05 00:00 | o2_saturation | 96 | % | + + + +---------+ | 2021-05-05 00:00 | respiration_rate | 16 | /min | + + + +---------+ | 2021-05-05 00:00 | temperature_metric | 36.56 | C | | | | | | + + + +---------+ | 2021-05-05 00:00 | | 97.8 | F | | | temperature_standar | | | | | d | | | + + + +---------+ | 2021-05-05 00:00 | weight_metric | 50.8 | kg | + + + +---------+ | 2021-05-05 00:00 | weight_standard | 111.99 | lb | + + + +---------+ | 2021-05-05 00:00 | weight_standard | 112 | lb | + + + +---------+ | 2021-05-08 00:00 | BMI | 20.5 | kg/m2 | + + + +---------+ | 2021-05-08 00:00 | BMI | 50 | th | + + + +---------+ | 2021-05-08 00:00 | BP_diastolic | 88 | mmHg | + + + +---------+ | 2021-05-08 00:00 | BP_systolic | 130 | mmHg | + + + +---------+ | 2021-05-08 00:00 | heart_rate | 93 | /min | + + + +---------+ | 2021-05-08 00:00 | height_metric | 157.48 | cm | + + + +---------+ | 2021-05-08 00:00 | height_standard | 62 | in | + + + +---------+ | 2021-05-08 00:00 | o2_saturation | 97 | % | + + + +---------+ | 2021-05-08 00:00 | respiration_rate | 18 | /min | + + + +---------+ | 2021-05-08 00:00 | temperature_metric | 37.39 | C | | | | | | + + + +---------+ | 2021-05-08 00:00 | | 99.3 | F | | | temperature_standar | | | | | d | | | + + + +---------+ | 2021-05-08 00:00 | weight_metric | 50.8 | kg | + + + +---------+ | 2021-05-08 00:00 | weight_standard | 111.99 | lb | + + + +---------+ | 2021-05-08 00:00 | weight_standard | 112 | lb | + + + +---------+ | 2021-10-31 00:00 | BMI | 20.5 | kg/m2 | + + + +---------+ | 2021-10-31 00:00 | BP_diastolic | 85 | mmHg | + + + +---------+ | 2021-10-31 00:00 | BP_systolic | 110 | mmHg | + + + +---------+ | 2021-10-31 00:00 | heart_rate | 65 | /min | + + + +---------+ | 2021-10-31 00:00 | height_metric | 157.48 | cm | + + + +---------+ | 2021-10-31 00:00 | height_standard | 62 | in | + + + +---------+ | 2021-10-31 00:00 | o2_saturation | 100 | % | + + + +---------+ | 2021-10-31 00:00 | respiration_rate | 16 | /min | + + + +---------+ | 2021-10-31 00:00 | temperature_metric | 36.78 | C | | | | | | + + + +---------+ | 2021-10-31 00:00 | | 98.2 | F | | | temperature_standar | | | | | d | | | + + + +---------+ | 2021-10-31 00:00 | weight_metric | 47.63 | kg | + + + +---------+ | 2021-10-31 00:00 | weight_metric | 50.8 | kg | + + + +---------+ | 2021-10-31 00:00 | weight_standard | 105 | lb | + + + +---------+ | 2021-10-31 00:00 | weight_standard | 111.99 | lb | + + + +---------+ | 2022-09-05 00:00 | BMI | 22.2 | kg/m2 | + + + +---------+ | 2022-09-05 00:00 | height_metric | 157.48 | cm | + + + +---------+ | 2022-09-05 00:00 | height_standard | 62 | in | + + + +---------+ | 2022-09-05 00:00 | weight_metric | 55 | kg | + + + +---------+ | 2022-09-05 00:00 | weight_standard | 121.25 | lb | + + + +---------+ | 2022-09-05 00:00 | weight_standard | 121.26 | lb | + + + +---------+ | 2022-09-06 00:00 | BMI | 23.0 | kg/m2 | + + + +---------+ | 2022-09-06 00:00 | BP_diastolic | 80 | mmHg | + + + +---------+ | 2022-09-06 00:00 | BP_diastolic | 83 | mmHg | + + + +---------+ | 2022-09-06 00:00 | BP_systolic | 114 | mmHg | + + + +---------+ | 2022-09-06 00:00 | BP_systolic | 123 | mmHg | + + + +---------+ | 2022-09-06 00:00 | heart_rate | 77 | /min | + + + +---------+ | 2022-09-06 00:00 | heart_rate | 94 | /min | + + + +---------+ | 2022-09-06 00:00 | height_metric | 157.48 | cm | + + + +---------+ | 2022-09-06 00:00 | height_standard | 62 | in | + + + +---------+ | 2022-09-06 00:00 | o2_saturation | 100 | % | + + + +---------+ | 2022-09-06 00:00 | o2_saturation | 99 | % | + + + +---------+ | 2022-09-06 00:00 | respiration_rate | 16 | /min | + + + +---------+ | 2022-09-06 00:00 | temperature_metric | 36.28 | C | | | | | | + + + +---------+ | 2022-09-06 00:00 | temperature_metric | 36.72 | C | | | | | | + + + +---------+ | 2022-09-06 00:00 | | 97.3 | F | | | temperature_standar | | | | | d | | | + + + +---------+ | 2022-09-06 00:00 | | 98.1 | F | | | temperature_standar | | | | | d | | | + + + +---------+ | 2022-09-06 00:00 | weight_metric | 57.1 | kg | + + + +---------+ | 2022-09-06 00:00 | weight_standard | 125.88 | lb | + + + +---------+"
--- OUTSIDE RECORDS SUMMARY | ~2022-10-29 | XMS | Continuity of Care Document ---
Demographics + + + | Address | [address] | | | [place] [address] | + + + | Preferred Language | Unknown | + + + | Marital Status | Never | + + + | Shinto Affiliation | Unknown | + + + | Race | White | + + + | Ethnic Group | Not or | + + + Author + + + | Author | [facility] | + + + | Organization | [facility] | + + + | Address | [address] | | | [place] [address] | + + + | Phone | | + + + Care Team Providers + + + + | Care Territory Sales Consultant Name | Role | Phone | + [...] | (no date) | Midazolam | [facility] | (no reaction) | (no severity) | | | | [facility] | | | | | [facility] | | | + + + + + + Encounters No information. Functional Status No information. Immunizations No information. Medications + + + + | date | description | facility | + + + + | 2021-05-08 00:00 | LORAZEPAM | [facility] | + + + + | 2021-10-31 00:00 | ONDANSETRON | [facility] | + + + + | 2016-08-22 00:00 | ONDANSETRON HCL | [facility] | + + + + | 2016-08-22 00:00 | ONDANSETRON HCL | [facility] | + + + + | 2016-08-22 00:00 | OXYCODONE | [facility] | | | HCL/ACETAMINOPHEN | | + + + + | 2016-08-22 00:00 | OXYCODONE | [facility] | | | HCL/ACETAMINOPHEN | | + + + + | 2016-08-22 00:00 | IBUPROFEN | [facility] | + + + + | 2016-08-22 00:00 | IBUPROFEN | [facility] | + + + + | 2021-11-01 00:00 | NITROGLYCERIN | [facility] | + + + + | 2022-09-06 00:00 | NITROGLYCERIN | [facility] | + + + + | 2016-08-22 00:00 | ACETAMINOPHEN | [facility] | + + + + | 2016-08-22 00:00 | ACETAMINOPHEN | [facility] | + + + + | 2022-09-06 00:00 | LEVETIRACETAM | [facility] | + + + + | 2021-05-05 00:00 | EPINEPHRINE | [facility] | + + + + | 2021-05-05 00:00 | EPINEPHRINE | [facility] | + + + + Problems + + + + | date | description | facility | + + + + | 2021-10-31 00:00 | Syncope | [facility] | + + + + | 2021-10-31 00:00 | Syncope | [facility] | + + + + | 2022-09-05 21:18 | EPILEPSY, UNSP, NOT | [facility] | | | INTRACTABLE, WITH STATUS | | | | EPILE | | + + + + | 2022-09-05 21:18 | UNSPECIFIED CONVULSIONS | [facility] | + + + + | 2022-09-05 21:18 | OTHER SENIOR LIVING (CURRENT) | [facility] | | | DRUG [...] | 2022-09-06 00:00 | Status epilepticus | [facility] | + + + + | 2022-09-06 18:00 | UNSPECIFIED CONVULSIONS | [facility] | + + + + | 2022-09-06 18:00 | OTHER SENIOR LIVING (CURRENT) | [facility] | | | DRUG [...] (missing) | | (unavailable | 17:05 | [facility] | | | | | [...] (missing) | | (unavailable | 00:20:07 | Ed[facility] | | | | | ) | [...] (missing) | | (unavailable | 18:05:07 | [facility]il[facility] | | | | | [...]
[2022-10-29 07:05] VITALS: BP 122/79
== END 2022-10-29 07:06 | disposition home or self-care (01) ==
LOC: ED 06:23
DX: F44.5 Conversion disorder with seizures or convulsions (principal); Z88.8 Allergy status to other drugs, medicaments and biological substances
CPT/HCPCS: 99284

== ENCOUNTER 2024-03-06 15:28 | Emergency (ER) | payer OTHER ==
[~2024-03-06] VITALS: Ht 157.5 cm; Wt 55.4 kg
[~2024-03-06 15:28] MED LIST changes: +MICROGESTIN1 EACH PO; +VISTARIL25 MG PO; +ZYRTEC10 M3 PO
--- OUTSIDE RECORDS SUMMARY | 2024-03-06 15:35 | XMS ---
PreManage Notification: DEMOND VAUGHN Security Visual Merchandising Assistant Events No recent Security Events currently on file CRITERIA MET - [facility] - 2 Visits in 30 Days CARE PROVIDERS JOSE [facility] Current PHONE: [phone] Javi has no Care Guidelines for this patient. [place] VISIT COUNT (12 MO.) 2 [facility] TOTAL 2 NOTE: Visits indicate total known visits. ED/UCC VISIT TRACKING (12 MO.) 03/06/2024 15:28 [facility] TYPE: Emergency COMPLAINT: - WEAKNESS 03/02/2024 05:30 [facility] [place] TYPE: Emergency COMPLAINT: - POSS ALLERGIC REACTION DIAGNOSES: - Acute bronchospasm - Allergy status to other drugs, medicaments and biological substances - Dyspnea, unspecified - Other adverse food reactions, not elsewhere classified, initial encounter - Other retirement (current) drug therapy INPATIENT VISIT TRACKING (12 MO.) No inpatient visits to display in this time frame [email or web address]
[2024-03-06] MEDS ORDERED: diphenhydrAMINE HCL 50 MG/ML VIAL IV ONE (15:45)
[2024-03-06] MEDS ORDERED: LORazepam 2 MG/ML VIAL IV ONE (15:45)
[2024-03-06] MEDS ORDERED: methylPREDNISolone SOD SUCC 125 MG/2 ML VIAL IV ONE (15:45)
[2024-03-06 15:48] LABS: BASOPHILS 0.2 % (0-2); EOSINOPHILS 1.8 % (0-6); HEMATOCRIT 43.4 % (35.0-50.0); HEMOGLOBIN 14.9 g/dL (12.0-18.0); LYMPHOCYTES 33.2 % (24-44); MCH 30.3 (27-36); MCHC 34.3 g/dl (30-36); MCV 88.3 fl (81-99); MONOCYTES 7.4 % (0-12); NEUTROPHILS 57.4 % (39-80); PLATELET COUNT 357 K/uL (140-440); RBC 4.91 M/ul (4.3-5.7); RDW 12.7 (10.5-15.0)
[2024-03-06 15:59] LABS: ALBUMIN 3.6 g/dL (3.4-5.0); ALBUMIN/GLOBULIN RATIO 1.13 (1.1-2.4); ANION GAP 15.2 (7-21); BILIRUBIN, TOTAL 0.2 ng/dL (0.2-1.0); BUN/CREATININE RATIO 14.28 (6.0-28.6); CALCIUM 8.8 mg/dL (8.5-10.1); CREATININE, SERUM 0.91 mg/dL (0.55-1.02); POTASSIUM 3.2 mmol/L (3.5-5.1); PROTEIN, TOTAL 6.8 g/dL (6.4-8.2)
[2024-03-06] MEDS ORDERED: HYDROXYZINE PAM50 MG PO (16:00)
[2024-03-06] MEDS ORDERED: EPINEPHRINE 2.25% 0.5 ML AMP NEB ONE (16:00)
[2024-03-06] MEDS ORDERED: FAMOTIDINE 20 MG/ 2 ML VIAL IV ONE (16:00)
[2024-03-06] MEDS ORDERED: EPIPEN AUTO INJECTOR 0.3 MG/0.3 ML ML IM ONE (16:00)
[2024-03-06] MEDS ORDERED: EPIPEN 2-P0.3 MG/0.3 IM (17:36)
[2024-03-06] MEDS ORDERED: DEXAMETHASONE4 MG PO (17:36)
[2024-03-06 17:49] VITALS: BP 113/70
== END 2024-03-06 17:45 | disposition home or self-care (01) ==
LOC: ED 15:28
PROVIDERS: Emergency Medicine
DX: R06.1 Stridor (principal); G90.A Postural orthostatic tachycardia syndrome [POTS]; Z88.8 Allergy status to other drugs, medicaments and biological substances; Z79.890 Hormone replacement therapy
CPT/HCPCS: 36415; 71045; 80053; 85025; 96374; 96375; 99285-25; A9270; J0171; J1200; J2060; J2919